=== PATIENT | female | born 1995 | race Caucasian/White ===

== ENCOUNTER 2020-10-09 06:20 | Inpatient (IN) | payer OTHER ==
[2020-10-09] MEDS: ELECTROLYTE-148 SOLN 1,000 ML IV SCH (07:30)
[2020-10-09] MEDS ORDERED: ELECTROLYTE-148 SOLN 500 ML IV ONE (07:44)
[2020-10-09] MEDS ORDERED: CITRIC ACID/SODIUM CITRATE 30 ML UNIT-DOSE CUP PO ONE (07:44)
[2020-10-09] MEDS ORDERED: OXYTOCIN 10 UNITS/ML VIAL ONE (07:51)
[2020-10-09] MEDS ORDERED: BUPIVACAINE HCL/PF 0.25% (2.5MG/ML) 10 ML VIAL ONE (07:51)
[2020-10-09] MEDS ORDERED: OXYTOCIN 20 UNITS in 0.9% NS 40 UNIT/2,000 ML INFUS.BAG IV ONE (07:51)
[2020-10-09] MEDS ORDERED: ceFAZolin SODIUM 1 GM VIAL ONE (08:01)
[2020-10-09] MEDS ORDERED: DEXAMETHASONE SOD PHOSPHATE 4 MG/1 ML VIAL ONE (08:01)
[2020-10-09] MEDS ORDERED: ONDANSETRON 4 MG/2 ML VIAL ONE (08:01)
[2020-10-09] MEDS ORDERED: MORPHINE 5 MG/10 ML AMP - FOR COMPOUNDING USE ONLY ONE (08:05)
[2020-10-09] MEDS ORDERED: MIDAZOLAM HCL 2 MG/2 ML SINGLE DOSE VIAL ONE (08:34)
[2020-10-09] MEDS ORDERED: KETOROLAC TROMETHAMINE 30 MG/1 ML VIAL ONE (09:09)
[2020-10-09] MEDS ORDERED: ACETAMINOPHEN 1000 MG/100 ML VIAL (NON FORMULARY) IVPB PRN (09:27)
[2020-10-09] MEDS ORDERED: ONDANSETRON 4 MG/2 ML VIAL IVPUSH PRN (09:27)
[2020-10-09] MEDS ORDERED: METHYLERGONOVINE MALEATE 0.2 MG/1 ML AMP IM PRN (09:40)
[2020-10-09] MEDS ORDERED: IBUPROFEN 800 MG/8 ML IJ IVPB PRN (09:40)
[2020-10-09] MEDS ORDERED: oxyCODONE HCL 5 MG TABLET PO PRN (09:40)
[2020-10-09 10:11] VITALS: BMI 21.2
[2020-10-09] MEDS: PRENATAL VITAMINS W/ FOLIC ACID TABLET (FP) PO SCH (11:47)
[2020-10-09 13:00] LABS: HIV INTERPRETATION NEGATIVE (NEGATIVE)
[2020-10-09] MEDS: OXYTOCIN 20 UNITS in 0.9% NS 20 UNIT/1,000 ML INFUS.BAG IV SCH (21:04)
[2020-10-10] MEDS: ACETAMINOPHEN 325 MG TABLET (FP) PO PRN ×3 (05:35→22:49)
[2020-10-10] MEDS: SIMETHICONE 80 MG TAB.CHEW (FP) PO PRN ×3 (05:35→22:49)
[2020-10-10] MEDS: IBUPROFEN 600 MG TABLET (FP) PO PRN ×2 (05:35→16:14)
[2020-10-10 08:09] LABS: BASO % 0.3 % (0-2.0); EOS % 0.3 % (0-4.5); HEMATOCRIT 32.9 % (32.4-45.2); HEMOGLOBIN 11.3 GM/dL (10.7-15.3); LYMPH % 15.6 % (8-40); MCH 32.2 pg (25.7-33.7); MCHC 34.3 g/dl (32.0-36.0); MEAN CELL VOLUME 94.1 fl (80-96); MEAN PLT VOLUME 9.6 fl (7.5-11.1); MONO % 5.4 % (3.8-10.2); NEUT % 78.4 % (42.8-82.8); PLATELET COUNT 171 K/MM3 (134-434); RDW 13.5 % (11.6-15.6)
[2020-10-10] MEDS: oxyCODONE HCL 5 MG TABLET PO PRN ×2 (09:29→22:49)
[2020-10-10] MEDS: PRENATAL VITAMINS W/ FOLIC ACID TABLET (FP) PO SCH (09:32)
[2020-10-10] MEDS ORDERED: BISACODYL 10 MG SUPP.RECT RC PRN (09:40)
[2020-10-10] MEDS: SENNOSIDES/DOCUSATE COMBO (SENNA PLUS) TABLET (UD) PO PRN (22:49)
[2020-10-11] MEDS: ACETAMINOPHEN 325 MG TABLET (FP) PO PRN ×4 (03:09→22:50)
[2020-10-11] MEDS: SIMETHICONE 80 MG TAB.CHEW (FP) PO PRN ×4 (03:09→22:51)
[2020-10-11] MEDS: oxyCODONE HCL 5 MG TABLET PO PRN ×3 (03:10→22:50)
[2020-10-11] MEDS: IBUPROFEN 600 MG TABLET (FP) PO PRN ×3 (08:42→22:49)
[2020-10-11] MEDS: PRENATAL VITAMINS W/ FOLIC ACID TABLET (FP) PO SCH (09:01)
[2020-10-11] MEDS: SENNOSIDES/DOCUSATE COMBO (SENNA PLUS) TABLET (UD) PO PRN (22:49)
[2020-10-12] MEDS: ELECTROLYTE-148 SOLN 1,000 ML IV SCH (07:56)
[2020-10-12] MEDS: PRENATAL VITAMINS W/ FOLIC ACID TABLET (FP) PO SCH (09:28)
[2020-10-12] MEDS: IBUPROFEN 600 MG TABLET (FP) PO PRN (09:28)
[2020-10-12] MEDS: SIMETHICONE 80 MG TAB.CHEW (FP) PO PRN (09:28)
[2020-10-12] MEDS: ACETAMINOPHEN 325 MG TABLET (FP) PO PRN (09:29)
[2020-10-12] MEDS: OXYTOCIN 20 UNITS in 0.9% NS 20 UNIT/1,000 ML INFUS.BAG IV SCH (11:16)
[2020-10-12 11:24] VITALS: BP 116/81; PULSE 79; TEMP 98
== END 2020-10-12 14:15 | disposition home or self-care (01) | DRG 540 ==
LOC: JLDR 06:20 → J3W 10:48
PROVIDERS: ADMIT Obstetrics & Gynecology; ATTEND Obstetrics & Gynecology
PROC: 10D00Z1 Extraction of Products of Conception, Low, Open Approach (ICD-10-PCS; principal; 2020-10-09)
DX: O44.43 Low lying placenta NOS or without hemorrhage, third trimester (principal); O26.62 Liver and biliary tract disorders in childbirth; K83.1 Obstruction of bile duct; O32.2XX0 Maternal care for transverse and oblique lie, not applicable or unspecified; O34.593 Maternal care for other abnormalities of gravid uterus, third trimester; Z3A.38 38 weeks gestation of pregnancy; Z37.0 Single live birth
CPT/HCPCS: 36415; 85025; 85461; 86850; 86900; 86901; 86999; 87389; J0131